=== PATIENT | male | born 1975 | race Caucasian/White ===

== ENCOUNTER 2017-10-02 10:50 | Emergency (ER) | payer OTHER ==
[2017-10-02 11:04] VITALS: BP 138/87; PULSE 72; TEMP 37; O2SAT 98
--- NOTE | 2017-10-02 11:43 | EMERGENCY ROOM VISIT NOTE ---
ED Visit Note First contact with patient: 11:09 CHIEF COMPLAINT: Right hand laceration at work 18 hours ago HISTORY OF PRESENT ILLNESS: Patient is a [id number] 42-year-old white male who presents emergency department for evaluation of a laceration to the right hand that he sustained yesterday at work. 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 He cleansed the area and bandaged and continued to work. The area with antibiotic soap and water last evening and applied butterfly tapes. He reports that he was sent here to the emergency department to be cleared to return to work. Bleeding has been controlled. He denies any numbness, tingling or weakness of the thumb. REVIEW OF SYSTEMS: Review of systems as per HPI. All other systems reviewed were negative. At least 6 systems reviewed. PMH: Electronic medical records are reviewed and summarized as above/below. See Problem List. Prehospital records, last tetanus was administered in 2012. SOCIAL HISTORY: Patient lives at home by himself. Former smoker. Positive alcohol use. PHYSICAL EXAM: Vital Signs: Reviewed Nurse's notes. There is a 2 cm long laceration on the palmar aspect of the right hand, over the first metacarpal. The edges do not gape widely apart. There is no foreign material in the wound and it looks clean. There is no active bleeding. No deep structures such as tendons or nerves are seen in the base of the wound. Flexion, extension and circumduction of the thumb are full and strong. Sensation to pain and light touch is intact. EMERGENCY DEPARTMENT COURSE: The patient was seen and evaluated as above. He has a borderline laceration on the thenar eminence of the right thumb. Does not cross the joint line. No tenderness, nerve or vascular involvement. Given the duration since the laceration occurred, it was not felt that delayed primary closure was appropriate, particularly given the high risk of infection. Area was cleansed thoroughly with saline, then the wound was reapproximated with benzoin and Steri-Strips. Wound care measures were discussed. He was advised to leave the Steri-Strips in place, keep the wound clean and dry and to watch for signs of infection. Medication reconciliation: I attest that I have personally reviewed the patient' s current medication list. Blood pressure screening : Patient was found to have normal blood pressure on screening and does not require follow-up. Problem List Surgical Problems: (1) H/O hand surgery Status: Resolved (2) H/O reconstruction of anterior cruciate ligament tear Status: Resolved Current/Historical Medications No Active Prescriptions or Reported Meds Allergies Coded Allergies: No Known Allergies (Unverified , 10/02/17) Vital Signs Date Time Temp Pulse Resp B/P (MAP) Pulse Ox O2 Delivery O2 Flow Rate FiO2 10/02/17 11:04 37.0 72 20 138/87 98 Room Air Departure Information Impression Primary Impression: Laceration of right hand Additional Impression: Work related injury Prescriptions No Active Prescriptions or Reported Meds Referrals Yoan Tavares M.D. (PCP) Patient Instructions My [facility] Additional Instructions Keep wound clean and dry. Wash daily with mild soap and water. Cover with an somatic ointment and a bandage until healed. Allow the Steri-Strips to fall off on their own, may reapply an additional set. Activity as tolerated. Return for any signs of infection (increasing redness, swelling, drainage). Ibuprofen 600 mg and Tylenol 1000 mg every 6 hrs for pain. Problem Qualifiers
== END 2017-10-02 12:04 | disposition home or self-care (01) ==
LOC: C.EDB 10:51 → C.EDD 12:04
DX: S61.411A Laceration without foreign body of right hand, initial encounter (principal); W45.8XXA Other foreign body or object entering through skin, initial encounter; Y99.0 Civilian activity done for income or pay; Z87.891 Personal history of nicotine dependence

== ENCOUNTER → 2017-11-02 | Outpatient (CLI) | payer OTHER ==
--- NOTE | 2017-11-03 06:31 | SPLIT NIGHT TECHNICIAN REPORT ---
[facility] Split Night Polysomnogram - Behavioral Therapy Coordinator Report Study date: 11/02/2017 Referring Physician: KIM ACEVEDO M.D. Name: LIA JOELLEN D Behavioral Therapy Coordinator: Zion Cortez RUST. Date of : 1975 Height: 42 years, Height 5' 10" Sex: Male Weight: 188 lbs Age: 42 BMI: Medications: 26.97 BACTRIM TABS, KEFLEX CAPS, AZITHROMYCIN 250 MG, VENTOLIN HFA 108 90 BASE Patient History PATIENT HAS HISTORY OF EXCESSIVE DAYTIME SLEEPINESS, SNORING AND HEADACHES. ALSO, HAS HISTORY OF FATIGUE AND LOW ENERGY. HE IS HERE TODAY FOR AN EVALUATION FOR MAU. ESS = 15 RM 5 Parameters Monitored NPSG: E1-M2, E2-M1, Fp1-M2, Fp2-M1, F3-M2, F4-M2, F4-M1, C3-M2, C4-M2, C4-M1, O1-M2, O2-M2, O2-M1, T3-M2, T4-M1, P3-M2, P4-M1, CHIN1, CHIN2, HR, EKG, Legs, PFLOW, SNOR, FLOW, CFLOW, Tidal Volume, THOR, ABDO, SpO2, PLTH, CPRESS, ETCO2 Wave, ETCO2, pH SLEEP SUMMARY DATA DIAGNOSTIC TREATMENT Lights Out: 10:21:50 PM 12:59:20 AM Lights On: 12:52:20 AM 5:33:20 AM Total Recording Time (TRT): 151.0 min. 274.5 min. Total Sleep Time (TST): 104.0 min. 245.0 min. NREM Time: 104.0 min. 138.5 min. REM Time: 0.0 min. 106.5 min. Sleep Period Time (SPT): 109.0 min. 248.5 min. Sleep Efficiency (SE): 69 % 89 % Sleep Latency: 41.5 min. 25.5 min. Arousal Index: 34.6 2.0 PAP Treatment Levels: 4, 5, 6, 7, 8 * Optimal Pressure(s) SLEEP STAGING DATA DIAGNOSTIC TREATMENT Duration (min) TST % Duration (min) TST % Stage Wake: 46.5 min. -- 29.0 min. -- WASO: 5.0 min. -- 3.5 min. -- NREM: 104.0 min. 100 % 138.5 min. 57 % Stage N1: 14.0 min. 13 % 6.5 min. 3 % Stage N2: 90.0 min. 87 % 52.5 min. 21 % Stage N3: 0.0 min. 0 % 79.5 min. 32 % REM: 0.0 min. 0 % 106.5 min. 43 % POSITIONAL DATA Event Count Index Event Count Index Supine: 45 68.4 16 3.9 Supine NREM: 45 68.4 12 5.2 Supine REM: N/A N/A 4 2 Non-Supine: 55 51.2 N/A N/A Non-Supine NREM: 55 51.2 N/A N/A Non-Supine REM: N/A N/A N/A N/A AROUSAL SUMMARY DATA: Event Count Index Event Count Index Apnea Arousals: 44 43.3 0 0.2 Hypopnea Arousals: 4 2.3 5 1.2 Snore Arousals: 8 4.6 2 0.5 PLM Arousals: 0 0.0 0 0.0 Non-Specific Arousals: 5 2.9 2 0.5 Total Arousals: 60 34.6 8 2.0 MYOCLONUS (PLM) Event Count Index Event Count Index PLM: 0 0.0 0 0.0 PLM AROUSAL: 0 0.0 0 0.0 PLM W/O AROUSAL 0 0.0 0 0.0 PLM W/RESP EVENT 0 0.0 0 0.0 MYOCLONUS (PLM) Event Count Index Event Count Index LM: 0 24.2 5 1.2 LM AROUSAL: 0 0.0 0 0.0 LM W/O AROUSAL LM W/RESP EVENT LM NON SPECIFIC 14 8.1 4 1.0 HEART RATE DATA DIAGNOSTIC TREATMENT Sleep (bpm): 52 54 REM (bpm): N/A 92 NREM (bpm): 85 92 Tachycardia Count: 0 0 Tachycardia Duration: 0.00 0 Bradycardia Count: 0 0 Bradycardia Duration: 0.00 0 DIAGNOSTIC PORTION TREATMENT PORTION RESPIRATORY DATA Event Count Index Event Count Index AHI: -- 57.7 -- 3.9 RDI: -- 57.7 -- 4 Obstructive Apnea: 75 43.3 1 0.2 Central Apnea: 0 0.0 0 0.0 Mixed Apnea: 0 0.0 0 0.0 Hypopnea: 25 14.4 15 3.7 RERA: 0 0.0 0 0.0 Total Apneas: 75 43.3 1 0.2 RESPIRATORY DATA REM NREM SLEEP REM NREM SLEEP Supine Position: Obstructive Apneas: N/A 30 30 0 1 1 Central Apneas: N/A 0 0 0 0 0 Mixed Apneas: N/A 0 0 0 0 0 Hypopneas: N/A 15 15 4 11 15 RERA N/A 0 0 0 0 0 Total Supine Events: N/A 45 45 4 12 16 Supine AHI: N/A 68.4 68.4 2 5.2 3.9 Supine RDI: N/A 68.4 68.4 2.3 5.2 3.9 REM NREM SLEEP REM NREM SLEEP Non-Supine Position: Obstructive Apneas: N/A 45 45 N/A N/A N/A Central Apneas: N/A 0 0 N/A N/A N/A Mixed Apneas: N/A 0 0 N/A N/A N/A Hypopneas: N/A 10 10 N/A N/A N/A RERA N/A 0 0 N/A N/A N/A Total Supine Events: N/A 55 55 N/A N/A N/A Supine AHI: N/A 51.2 51.2 N/A N/A N/A Supine RDI: N/A 51.2 51.2 N/A N/A N/A OXYGEN DESTAURATION DATA: Event Count Index Event Count Index REM Desaturations: N/A N/A 5 2.8 NREM Desaturations: 97 56.0 11 4.8 SNORE DATA DIAGNOSTIC TREATMENT Snore Time: 22.3 1:24:50 AM Snore TST%: 8 2 Snore Arousal Count: 8 2 Snore Arousal Index: 4.6 0.5 Desaturation Event Summary: Minimum %SpO2 Event Count Mean/Min/Max Duration(sec.) Desaturation Index % Time In Bed > 90 90 42.3 / 15.3 / 61.5 18.9 67.4 86 - 90 67 33.1 / 6.8 / 62.0 46.4 20.4 81 - 85 5 15.3 / 6.8 / 23.8 9.9 7.1 76 - 80 1 7.0 / 7.0 / 7.0 3.8 3.7 71 - 75 0 N/A 0.0 1.2 66 - 70 0 N/A 0.0 0.1 61 - 65 0 N/A 0.0 0.0 56 - 60 0 N/A 0.0 0.0 51 - 55 0 N/A 0.0 0.0 < 50 0 N/A 0.0 0.0 OXYGEN SATURATION DATA DIAGNOSTIC TREATMENT SpO2 Mean Sleep: 85 % 92 % SpO2 Mean REM: N/A % 92 % SpO2 Mean NREM: 85 % 92 % SpO2 Minimum Sleep: 68 % 83 % SpO2 Minimum REM: N/A % 84 % SpO2 Minimum NREM: 68 % 83 % Time Below 90% (TST): 76.3 13.5 Time Below 88% (TST): 61.2 6.6 Total REM NREM Awake <50% 0.0 min. 0.0 min. 0.0 min. 0.0 min. 51 - 60% 0.0 min. 0.0 min. 0.0 min. 0.0 min. 61 - 70% 0.3 min. 0.0 min. 0.3 min. 0.0 min. 71 - 80% 21.1 min. 0.0 min. 20.6 min. 0.5 min. 81 - 90% 116.8 min. 14.4 min. 69.1 min. 33.4 min. 91 - 100% 286.2 min. 92.1 min. 152.5 min. 41.6 min. Average 90 92 89 91 Minimum SpO2 68 84 68 71 Desaturation Event Index 16.5 2.8 26.7 3.2 # Desat. Events below 89% 109 3 103 3 Time(%) with Saturation below 89% 22.5 1.6 16.8 4.1 Time(min.) with Saturation below 89% 95.7 6.9 71.4 17.4 Recording Behavioral Therapy Coordinator Comments: Mr. Morrison slept in the right and supine positions. No cardiac arrhythmia noted. Leg movements noted. No bruxism noted. Snoring was noted and scored as a 4 on a scale of 1 through 5. (0=no snoring, 5=snoring loud enough to be heard through a closed door or down the [address]opez way) At 12:51 Mr. Morrison has met specific Split-Night criteria during the diagnostic portion of this study. CPAP was initiated at +4 CMH2O and up-titrated to an optimal level of +8CMH2O, which nearly eliminated all respiratory events and snoring. A Resmed mirage fx nasal mask was used during titration Mr. Morrison awoke to use the restroom 0 times during the night. Mr. Morrison stated I slept as well as I do when I am in my own bed. The final report will be interpreted and signed by a sleep physician. The completed physician report will then be placed in the patient medical record. Therapy Event: Therapy (cm H20) 0 4 5 6 7 8 Total Time at Pressure (min.) 150.5 34.7 12.6 23.6 130.8 72.2 TST at Pressure (min.) 104.0 8.2 12.1 23.6 129.8 71.2 # Periods 1 1 1 1 1 1 Sleep Onset (min.) 41.5 25.5 0.0 0.0 0.0 0.0 REM Onset (min.) N/A N/A 6.3 0.0 0.0 2.2 Sleep Efficiency % 69 23 96 100 99 98 Wakefulness (%) 30.9 76.3 4.0 0.0 0.8 1.4 Wakefulness (min.) 46.5 26.5 0.5 0.0 1.0 1.0 NREM 1 (%) 9.3 14.4 4.0 0.0 0.4 0.7 NREM 1 (min.) 14.0 5.0 0.5 0.0 0.5 0.5 NREM 2 (%) 59.8 9.3 41.9 0.0 14.0 35.6 NREM 2 (min.) 90.0 3.2 5.3 0.0 18.3 25.7 NREM 3 (%) 0.0 0.0 0.0 0.0 60.8 0.0 NREM 3 (min.) 0.0 0.0 0.0 0.0 79.5 0.0 REM (%) 0.0 0.0 50.2 100.0 24.1 62.3 REM (min.) 0.0 0.0 6.3 23.6 31.5 45.0 # Arousals 60 5 1 0 2 0 Arousal Index 34.6 36.5 5.0 0.0 0.9 0.0 # Snore 614 18 27 18 21 57 Snore Index 354.2 131.4 133.8 45.7 9.7 48.0 AHI 57.7 51.1 9.9 7.6 1.4 0.8 AHI Supine 68.4 51.1 9.9 7.6 1.4 0.8 AHI Non-Supine 51.2 N/A N/A N/A N/A N/A NREM AHI 57.7 51.1 20.8 N/A 1.8 0.0 REM AHI N/A N/A 0.0 7.6 0.0 1.3 RDI 57.7 51.1 9.9 7.6 1.4 0.8 # Obstructive 75 0 0 0 1 0 # Central Ap 0 0 0 0 0 0 # Mixed 0 0 0 0 0 0 # Hypopneas 25 7 2 3 2 1 RERAS 0 0 0 0 0 0 Total Respiratory Events 100 7 2 3 3 1 Time Below SpO2 89.00% (min.) 68.6 1.3 1.2 6.9 0.2 0.1 Mean NREM SpO2 (%) 85 91 91 N/A 92 93 Mean REM SpO2 (%) N/A N/A 91 90 92 93 Mean Sleep SpO2 (%) 85 91 91 90 92 93 Min NREM SpO2 (%) 68 83 84 N/A 88 87 Min REM SpO2 (%) N/A N/A 90 84 89 89 Position Supine (min.) 39.5 8.2 12.1 23.6 129.8 71.2 Position Non-supine (min.) 64.5 0.0 0.0 0.0 0.0 0.0 LM Index Sleep 24.2 0.0 0.0 7.6 0.5 0.8 LM Index NREM 24.2 0.0 0.0 N/A 0.6 0.0 LM Index REM N/A N/A 0.0 7.6 0.0 1.3 Mean Heart Rate (bpm) 52 50 56 55 55 51 Min Heart Rate (bpm) 43 43 48 45 44 38
--- NOTE | 2017-11-04 11:20 | Sleep Study ---
Sleep Study Report Date of Service: 11/02/2017 Sleep Study Report CLINICAL DATA: The patient is a 42-year-old male referred for a sleep study by Dr. Tavares. Patient has snoring, excessive daytime somnolence, morning headaches, and difficulty concentrating. He has an Whitmer Sleepiness Scale score of 15. His BMI is 26.97. This was an in-lab split night sleep study. SLEEP ARCHITECTURE: The study was divided into a diagnostic and therapeutic portion with nasal CPAP being utilized during the therapeutic portion. During the diagnostic portion of the study the sleep period time was 109 minutes. The total sleep time was 104 minutes. The sleep efficiency was moderately reduced to 69 percent. The sleep latency was prolonged to 41.5 minutes. Sleep consisted of stage N1 13 percent, stage N2 87 percent, stage N3 0 percent, stage REM 0 percent. During the therapeutic portion of the study the sleep period time was 248.5 minutes. The total sleep time was 245 minutes. The sleep efficiency was 89 percent. The sleep latency was elevated at 25.5 minutes. Sleep consisted of stage N1 3 percent, stage N2 21 percent, stage N3 32 percent, stage REM 43 percent. AROUSAL DATA: During the diagnostic portion of the study the patient had 60 arousals including 44 apnea arousals, 4 hypopnea arousals, 8 snoring arousals, and 5 nonspecific arousals. The arousal index was 34.6. During the therapeutic portion of the study the patient had 8 arousals including 5 hypopnea arousals, 2 snoring arousals, and 2 nonspecific arousals. The arousal index was 2.0. PLM DATA: There was a normal periodic limb movement recording in both the diagnostic and therapeutic portions of the study. EKG: The underlying cardiac rhythm was normal sinus. The cardiac rates 52-92 beats per minute. No cardiac arrhythmias were noted. RESPIRATORY DATA: During the diagnostic portion of the study the patient had a total of 100 respiratory events including 75 obstructive apneas and 25 hypopneas. The apnea- hypopnea index was severely elevated at 57.7. This represents severe sleep apnea. During the therapeutic portion of the study the patient's respiratory events were treated with nasal CPAP which was titrated to a final pressure of 8 centimeters. There was a total of 16 respiratory events including 1 obstructive apnea and 15 hypopneas. The apnea-hypopnea index was 3.9. At the final pressure of 8 centimeters the apnea-hypopnea index was 0.8. OXIMETRY DATA: During the diagnostic portion of the study the mean saturation was 85 percent. The minimum saturation was 68 percent. There was a total of 61.2 minutes with saturations less than 88 percent. During the therapeutic portion of the study the mean saturation was 92 percent. The minimum saturation was 83 percent. There was a total of 6.6 minutes with saturations less than 88 percent. 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 No cardiac arrhythmia noted. No bruxism noted. Snoring was noted and scored as a 4 on a scale of 1 through 5. At 12:51 a.m. the patient met specific split night criteria during the diagnostic portion of this study. CPAP was initiated at 4 centimeters and up titrated to an optimal level of 8 centimeters, which nearly eliminated all respiratory events and snoring. A ResMed med Mirage FX nasal mask was used during titration. IMPRESSIONS: 1. Severe obstructive sleep apnea-resolved with nasal CPAP at 8 centimeters COMMENTS: The patient had severe sleep apnea as was demonstrated during the diagnostic portion of the study. He was then treated with nasal CPAP. He did extremely well. The arousal index decreased from 34.6 down to 2.0. There was a marked improvement in oxygenation. His sleep became well consolidated. There was a significant increase in stage N3 sleep and he had REM rebound. RECOMMENDATIONS: 1. It is advised that the patient be treated with nasal CPAP at 8 centimeters. 2. It is advised that he be ordered a ResMed med Mirage FX nasal mask. 3. If possible the patient should avoid sleeping in the supine position. 4. The patient should be seen between day 31 day of being on nasal CPAP, for insurance reasons. 5. Compliance data should be obtained and evaluated. Copies To 1: Roderick Adames DO; Yoan Tavares M.D.
== END | disposition home or self-care (01) ==
LOC: C.NEUR 20:00
PROVIDERS: ATTEND Internal Medicine
DX: G47.33 Obstructive sleep apnea (adult) (pediatric) (principal)

== ENCOUNTER → 2018-04-24 | Outpatient (CLI) | payer OTHER ==
[2018-04-24 10:32] LABS: BASO % 0.7 %; BASO ABS # 0.04 K/uL (0-0.2); EOS % 3.8 %; EOS ABS # 0.22 K/uL (0-0.5); HEMATOCRIT 36.8 % (42-52); HEMOGLOBIN 12.1 g/dL (14.0-18.0); IG# 0.02 K/uL (0.00-0.02); LYMPH % 37.7 %; MEAN CELL VOLUME 95.8 fL (80-100); MEAN CORPUSCULAR HEMOGLOBIN 31.5 pg (25-34); MEAN CORPUSCULAR HGB CONC 32.9 g/dl (32-36); MEAN PLATELET VOLUME 10.4 fL (7.4-10.4); MONO % 6.5 %; MONO ABS # 0.38 K/uL (0.11-0.59); NEUT ABS # 2.97 K/uL (1.4-6.5); PLATELET COUNT 239 K/uL (130-400); RED CELL DISTRIBUTION WIDTH CV 14.2 % (11.5-14.5); RED CELL DISTRIBUTION WIDTH SD 49.9 fL (36.4-46.3); WHITE BLOOD COUNT 5.83 K/uL (4.8-10.8)
[2018-04-24 11:19] LABS: ALBUMIN 4.3 gm/dl (3.4-5.0); ALKALINE PHOSPHATASE 43 U/L (45-117); ALT/SGPT 68 U/L (12-78); AST/SGOT 45 U/L (15-37); BLOOD UREA NITROGEN 17 mg/dl (7-18); CALCIUM 8.6 mg/dl (8.5-10.1); CARBON DIOXIDE 28 mmol/L (21-32); CREATININE 1.51 mg/dl (0.60-1.40); GLUCOSE 77 mg/dl (70-99); POTASSIUM 3.9 mmol/L (3.5-5.1); SODIUM 138 mmol/L (136-145)
== END | disposition home or self-care (01) ==
LOC: C.LAB1850 09:53
PROVIDERS: ATTEND Family Medicine
DX: R25.2 Cramp and spasm (principal); R13.10 Dysphagia, unspecified

== ENCOUNTER → 2018-04-28 | Outpatient (CLI) | payer OTHER ==
--- NOTE | 2018-04-28 16:08 | DIAGNOSTIC IMAGING REPORT ---
ULTRASOUND OF THE THYROID GLAND CLINICAL HISTORY: Dysphagia. Thyromegaly on examination. COMPARISON STUDY: No priors. TECHNIQUE: Real-time, grayscale, and color flow sonography of the thyroid gland is performed utilizing a high-frequency linear transducer. Images are reviewed in the transverse and longitudinal planes. FINDINGS: Right lobe: The right lobe of the thyroid gland is atrophic and markedly heterogeneous in echotexture, measuring 3.6 x 2.4 x 1.6 cm. No significant hyperemia is seen on color imaging. Left lobe: The left lobe of the thyroid gland is atrophic and markedly heterogeneous in echotexture, measuring 4.1 x 2.0 x 1.9 cm. No significant hyperemia is seen on color imaging. Isthmus: The thyroid isthmus is normal in appearance and measures 0.3 cm in AP diameter. Soft tissues: Small cervical lymph nodes are noted above the right lobe and likely on a reactive basis. IMPRESSION: 1. The thyroid gland is atrophic and markedly heterogeneous in echotexture. The appearance suggests the sequelae of thyroiditis. Correlation with serum thyroid function studies will be required. 2. No discrete thyroid lesion is identified. Electronically signed by: Jonny Calderon M.D. 04/28/2018 4:07 PM Dictated Date/Time: 04/28/2018 4:05 PM
== END | disposition home or self-care (01) ==
LOC: C.ULTR 15:21
PROVIDERS: ATTEND Family Medicine
DX: R13.10 Dysphagia, unspecified (principal); E03.4 Atrophy of thyroid (acquired)